=== PATIENT | male | born 1975 | race Caucasian/White ===

== ENCOUNTER 2023-11-07 20:31 | Emergency (ER) | payer SELFPAY ==
[~2023-11-07] VITALS: Ht 182.9 cm; Wt 91.0 kg
[2023-11-07 21:02] VITALS: BP 128/79; PULSE 97; RESP 16; TEMP 98.6; O2SAT 97
== END 2023-11-07 22:39 | disposition left against medical advice (07) ==
LOC: ER 20:31
DX: R52 Pain, unspecified (principal); Z53.21 Procedure and treatment not carried out due to patient leaving prior to being seen by health care provider